=== PATIENT | female | born 1930 | race Caucasian/White ===

== ENCOUNTER 2017-03-19 11:14 | Emergency (ER) | payer MEDICARE ==
[~2017-03-19] VITALS: Ht 165.1 cm; Wt 65.8 kg
[2017-03-19 11:14] VITALS: BP 156/81
[2017-03-19] MEDS ORDERED: ONDANSETRON PF 4 MG/2 ML VIAL. IV ONE (11:45)
[2017-03-19 12:12] LABS: BASO # 0.1 x10^3/uL (0.0-0.2); BASO % 1 % (0-3); EOS # 0.4 x10^3/uL (0.0-0.7); EOS % 4 % (0-3); HEMATOCRIT 46.1 % (36.0-47.0); HEMOGLOBIN 15.3 g/dL (12.0-15.5); LYMPH # 1.2 x10^3/uL (1.0-4.8); LYMPH % 12 % (24-48); MEAN CORPUSCULAR HEMOGLOBIN 30 pg (25-35); MEAN CORPUSCULAR HGB CONC 33 g/dL (31-37); MEAN CORPUSCULAR VOLUME 90 fL (79-100); MONO # 0.8 x10^3/uL (0.0-1.1); MONO % 9 % (0-9); NEUT # 7.2 x10^3uL (1.8-7.7); NEUT % 74 % (31-73); PLATELET COUNT 211 x10^3/uL (140-400); RED BLOOD COUNT 5.15 x10^6/uL (3.50-5.40); RED CELL DISTRIBUTION WIDTH 13.9 % (11.5-14.5); WHITE BLOOD COUNT 9.8 x10^3/uL (4.0-11.0)
[2017-03-19 12:14] LABS: CALCIUM 9.3 mg/dL (8.5-10.1); CREATININE 0.9 mg/dL (0.6-1.0); GFR 59.4; POTASSIUM 3.9 mmol/L (3.5-5.1)
[2017-03-19] MEDS ORDERED: KETOROLAC 30 MG/ML VIAL. IV ONE (12:15)
[2017-03-19] MEDS ORDERED: CEFTRIAXONE SODIUM 1 GM in IV NORMAL SALINE 50ML 50 ML IV ONE (12:15)
[2017-03-19 12:22] LABS: BILIRUBIN,URINE NEG (NEG); CLARITY,URINE BLOODY; COLOR,URINE RED; GLUCOSE,URINE NEG (NEG)
[2017-03-19 12:23] LABS: BACTERIA,URINE FEW /HPF (0-FEW); RBC,URINE >40 /HPF (0-2); SQUAMOUS EPITHELIAL CELL,UR FEW /LPF; UROBILINOGEN,URINE 0.2 mg/dL (0.2 mg/dL)
--- NOTE | 2017-03-19 12:29 | RAD ---
Indication abdominal pain. Hematuria. Noncontrast imaging through the abdomen and pelvis was performed. No prior imaging of the abdomen or pelvis is available. There is some pleural-parenchymal scarring at the lung bases. An acute finding at either lung base is not seen. There is mild hepatomegaly. The spleen appears unremarkable. There is a small hiatus hernia. The gallbladder appears grossly normal. No adrenal anomalies are seen. The kidneys appear unremarkable. No renal calculi are seen. There is no hydronephrosis or significant hydroureter on either side. The pancreas appears unremarkable. Acute finding in the abdomen is not seen. In the pelvis there are multiple stones in the dependent portion of the urinary bladder compatible with bladder calculi. There is mild diffuse urinary bladder wall thickening which is nonspecific but could reflect cystitis. The uterus appears largely atrophied. There are bilateral low-density masses in the pelvis likely relate reflecting ovaries. The left measures 6.4 cm in greatest dimension. The right is slightly complicated and septated but only measures 4 cm in greatest dimension. There is a solitary calcification near the right bladder trigone. It is uncertain whether this reflects a phlebolith or a minimally or nonobstructing calculus. Scoliosis and degenerative changes in the lumbar spine are noted as well as in both hips. IMPRESSION: Multiple bladder stones. 3 to 4 mm calcification near the right UVJ. It is uncertain whether this reflects a phlebolith or a minimally or nonobstructing distal ureteral calculus. (There is no significant hydronephrosis on either side or hydroureter). Bilateral adnexal masses likely ovarian in origin. Cystadenoma or cystadenocarcinoma is not excluded Chronic musculoskeletal changes. Mild urinary bladder wall thickening. Cystitis should be considered PQRS Compliance Statement: One or more of the following individualized dose reduction techniques were utilized for this examination: 1. Automated exposure control 2. Adjustment of the mA and/or kV according to patient size 3. Use of iterative reconstruction technique
[2017-03-19] MEDS ORDERED: IV NORMAL SALINE 50ML 50 ML ONE (12:30)
[2017-03-19] MEDS ORDERED: CEFTRIAXONE SODIUM 1 GM VIAL IV ONE (12:30)
--- NOTE | 2017-03-19 12:33 | PHYS DOC ---
General Chief Complaint: UTI Stated Complaint: POSS KID STONE Time Seen by MD: 11:28 Source: patient Exam Limitations: no limitations Problems: History of Present Illness Initial Comments Pt is 86/F to ED with one day urinary sx. Pt states she has had frequency/hesitancy and suprapubic aching since yesterday , dysuria today. No fever/chills/n/v/d, gross hematuria noted in ED. No malaise/rae, no vaginal sx. Timing/Duration: 24 hours Severity: mild Modifying Factors: improves with other Associated Symptoms: other Allergies: Coded Allergies: No Known Drug Allergies (Unverified , 03/19/17) Past Medical History Medical History: hypertension Surgical History: other (hysterectomy) Social History Smoker: non-smoker Alcohol: none Drugs: none Review of Systems Constitutional: denies chills, denies fever, denies malaise Respiratory: denies cough, denies shortness of breath Cardiovascular: denies chest pain, denies palpitations Gastrointestinal: see HPI Genitourinary: see HPI Musculoskeletal: denies back pain, denies joint pain, denies joint swelling, denies neck pain Psychiatric/Neurological: denies headache, denies numbness, denies paresthesia Physical Exam General Appearance: WD/WN, no apparent distress Ear, Nose, Throat: hearing grossly normal, normal ENT inspection Neck: non-tender, supple Respiratory: normal breath sounds, no respiratory distress Cardiovascular: normal peripheral pulses, regular rate, rhythm Gastrointestinal: soft (ND, suprapubic TTP no r/g/m) Back: no CVA tenderness, no vertebral tenderness Extremities: non-tender, normal inspection Skin: normal color, warm/dry Orders, Labs, Meds PATIENT: VENICE FRITZ ACCOUNT: [id number] : 1930 LOCATION: ER AGE: 86 SEX: F EXAM STATUS: PRE ER ORD. PHYSICIAN: TAMMIE LAW DO REASON: flank pain/hematuria r/o stone PROCEDURE: CT ABDOMEN PELVIS WO CONTRAST Indication abdominal pain. Hematuria. Noncontrast imaging through the abdomen and pelvis was performed. No prior imaging of the abdomen or pelvis is available. There is some pleural-parenchymal scarring at the lung bases. An acute finding at either lung base is not seen. There is mild hepatomegaly. The spleen appears unremarkable. There is a small hiatus hernia. The gallbladder appears grossly normal. No adrenal anomalies are seen. The kidneys appear unremarkable. No renal calculi are seen. There is no hydronephrosis or significant hydroureter on either side. The pancreas appears unremarkable. Acute finding in the abdomen is not seen. In the pelvis there are multiple stones in the dependent portion of the urinary bladder compatible with bladder calculi. There is mild diffuse urinary bladder wall thickening which is nonspecific but could reflect cystitis. The uterus appears largely atrophied. There are bilateral low-density masses in the pelvis likely relate reflecting ovaries. The left measures 6.4 cm in greatest dimension. The right is slightly complicated and septated but only measures 4 cm in greatest dimension. There is a solitary calcification near the right bladder trigone. It is uncertain whether this reflects a phlebolith or a minimally or nonobstructing calculus. Scoliosis and degenerative changes in the lumbar spine are noted as well as in both hips. IMPRESSION: Multiple bladder stones. 3 to 4 mm calcification near the right UVJ. It is uncertain whether this reflects a phlebolith or a minimally or nonobstructing distal ureteral calculus. (There is no significant hydronephrosis on either side or hydroureter). Bilateral adnexal masses likely ovarian in origin. Cystadenoma or cystadenocarcinoma is not excluded Chronic musculoskeletal changes. Mild urinary bladder wall thickening. Cystitis should be considered PQRS Compliance Statement: One or more of the following individualized dose reduction techniques were utilized for this examination: 1. Automated exposure control 2. Adjustment of the mA and/or kV according to patient size 3. Use of iterative reconstruction technique DICTATED AND SIGNED BY: ISAC SYED MD DATE: 03/19/17 1216 CC: HANANE COWAN; TAMMIE LAW DO ~ Reassuring labs, UA: SE few, WBC 5-10, RBC > 40, LE trace, blood large I discussed findings at length with pt. 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 Departure Time of Disposition: 12:56 Disposition: 01 HOME, SELF-CARE Diagnosis: UTI, bilateral adnexal masses Condition: STABLE Patient Instructions: Ovarian Tumors, Urinary Tract Infection, [id number] Additional Instructions: Rest, no strenuous activity. Aggressive hydration with gatorade, water. OTC tylenol as needed. Rx: bactrim ds, pyridium, take meds with food. You will need to follow up with a procurement director for further ovarian evaluation. You may choose to follow up with: Dr Jon SLACKMAN [address] [facility] [address] [place] [address] call today to schedule next available appointment. Return to ED with new or changing symptoms. TAMMIE LAW DO Mar 19, 2017 12:33
[2017-03-19] MEDS ORDERED: SULF1TAB24 PO (12:54)
[2017-03-19] MEDS ORDERED: PHEN100T82 PO (12:54)
== END 2017-03-19 13:15 | disposition home or self-care (01) ==
LOC: ER 11:41
DX: N39.0 Urinary tract infection, site not specified (principal); N85.8 Other specified noninflammatory disorders of uterus; I10 Essential (primary) hypertension
CPT/HCPCS: 36415; 74176; 80048; 81001; 85027; 87086; 96365; 96375; 99285; J0696; J2405

== ENCOUNTER 2018-10-05 09:26 | Emergency (ER) | payer MEDICARE ==
[~2018-10-05] VITALS: Ht 165.1 cm; Wt 65.8 kg
[~2018-10-05 09:26] MED LIST: PHEN100T82 PO; SULF1TAB24 PO
[2018-10-05] MEDS ORDERED: IV NORMAL SALINE 500ML 500 ML IV ONE (09:45)
[2018-10-05] MEDS ORDERED: LIDOCAINE 1% Multi-Dose 20 ML VIAL. IJ ONE (10:00)
--- NOTE | 2018-10-05 10:19 | EKG ---
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
--- NOTE | 2018-10-05 10:22 | RAD ---
CT HEAD WO CONTRAST dated 10/05/2018 10:04 AM Indication: Pain, recent fallfall, facial trauma today, CT HEAD W/O. Comparison: No comparison is available. Technique: Contiguous axial imaging the head was performed from skull base to vertex. No contrast administered. One or more of the following individualized dose reduction techniques were utilized for this examination: 1. Automated exposure control 2. Adjustment of the mA and/or kV according to patient size 3. Use of iterative reconstruction technique Findings: Ventricles and sulci are mildly prominent for age. No midline shift or mass effect. Mild patchy low density in the deep/subcortical periventricular white matter. No hemorrhage or extra-axial collection. Posterior fossa and brainstem unremarkable. Visualized paranasal sinuses and mastoid air cells are clear. There are posterior lateral changes of the bilateral mastoid air cells. Extensive atherosclerotic calcifications of the parasellar carotid arteries and vertebrobasilar system. There is a small calcific density along the anterior calvarium likely represents osteoma. Additional probable osteoma along the lateral left temporal bone. IMPRESSION: 1. No evidence of acute intracranial hemorrhage or mass. 2. Mild chronic small vessel ischemic changes and atrophy. Electronically signed by: Juan Albright MD (10/05/2018 10:18 AM) [facility] [place]
[2018-10-05 10:24] LABS: BASO # 0.1 x10^3/uL (0.0-0.2); BASO % 1 % (0-3); EOS # 0.1 x10^3/uL (0.0-0.7); EOS % 2 % (0-3); HEMATOCRIT 43.3 % (36.0-47.0); HEMOGLOBIN 14.4 g/dL (12.0-15.5); LYMPH # 0.9 x10^3/uL (1.0-4.8); LYMPH % 14 % (24-48); MEAN CORPUSCULAR HEMOGLOBIN 30 pg (25-35); MEAN CORPUSCULAR HGB CONC 33 g/dL (31-37); MEAN CORPUSCULAR VOLUME 89 fL (79-100); MONO # 0.7 x10^3/uL (0.0-1.1); MONO % 11 % (0-9); NEUT # 4.7 x10^3uL (1.8-7.7); NEUT % 72 % (31-73); PLATELET COUNT 265 x10^3/uL (140-400); RED BLOOD COUNT 4.87 x10^6/uL (3.50-5.40); WHITE BLOOD COUNT 6.5 x10^3/uL (4.0-11.0)
--- NOTE | 2018-10-05 10:34 | PHYS DOC ---
Past History Past Medical History: Hypertension Past Surgical History: Coronary Bypass Surgery, Hysterectomy Alcohol Use: Occasionally Additional Alcohol Information: one drink per noc Drug Use: None Adult General Chief Complaint Chief Complaint: LACERATION/AVULSION HPI HPI 88-year-old female presents with lip laceration after fall. The patient got up this morning and had breakfast without difficulty. She typically goes to take awarded nap afterwards. When she was getting up from the bed she believes that she got tangled in her blanket and she fell. She thinks she remember striking her face on the nightstand but is not sure. Family states that they did see blood on the nightstand. Patient is unsure if she lost consciousness. She has a laceration to her upper lip. She denies headache. She denies fever or chills. She takes a baby aspirin daily, but no other blood thinners. Review of Systems Review of Systems Constitutional: Denies fever or chills [] Eyes: Denies change in visual acuity, redness, or eye pain [] HENT: Denies nasal congestion or sore throat [] Respiratory: Denies cough or shortness of breath [] Cardiovascular: No additional information not addressed in HPI [] GI: Denies abdominal pain, nausea, vomiting, bloody stools or diarrhea [] : Denies dysuria or hematuria [] Musculoskeletal: Denies back pain or joint pain [] Integument: lip laceration[] Neurologic: Denies headache, focal weakness or sensory changes [] Endocrine: Denies polyuria or polydipsia [] All other systems were reviewed and found to be within normal limits, except as documented in this note. Current Medications Current Medications Current Medications Medications (Trade) Dose Ordered Sig/Marcelina Start Time Stop Time Status Last Admin Dose Admin Lidocaine HCl 20 ml 1X ONCE 10/05/18 10:00 10/05/18 10:02 DC Sodium Chloride 500 ml @ 0 mls/hr 1X ONCE 10/05/18 09:45 10/05/18 09:48 DC Allergies Allergies Allergies Coded Allergies Type Severity Reaction Last Updated Verified No Known Drug Allergies 03/19/17 No Physical Exam Physical Exam Constitutional: Well developed, well nourished, no acute distress, non-toxic appearance. [] HENT: Normocephalic, bilateral external ears normal, oropharynx moist, no oral exudates, nose normal. [] Eyes: PERRLA, EOMI, conjunctiva normal, no discharge. [] Neck: Normal range of motion, no tenderness, supple, no stridor. [] Cardiovascular:Heart rate regular rhythm, no murmur [] Lungs & Thorax: Bilateral breath sounds clear to auscultation [] Abdomen: Bowel sounds normal, soft, no tenderness, no masses, no pulsatile masses. [] Skin: One centimeter laceration of the upper lip that crosses the vermilion border. The second laceration 1/2cm of the lateral upper lip which also involves the vermilion border.[] Back: No tenderness, no CVA tenderness. [] Extremities: No tenderness, no cyanosis, no clubbing, ROM intact, no edema. [] Neurologic: Alert and oriented X 3, normal motor function, normal sensory function, no focal deficits noted. [] Psychologic: Affect normal, judgement normal, mood normal. [] Current Patient Data Vital Signs Vital Signs Date Time Temp Pulse Resp B/P (MAP) Pulse Ox O2 Delivery O2 Flow Rate FiO2 10/05/18 09:26 97.7 66 18 97 Room Air EKG EKG [] Radiology/Procedures Radiology/Procedures [] Impressions: CT HEAD WO CONTRAST dated 10/05/2018 10:04 AM Indication: Pain, recent fallfall, facial trauma today, CT HEAD W/O. Comparison: No comparison is available. Technique: Contiguous axial imaging the head was performed from skull base to vertex. No contrast administered. One or more of the following individualized dose reduction techniques were utilized for this examination: 1. Automated exposure control 2. Adjustment of the mA and/or kV according to patient size 3. Use of iterative reconstruction technique Findings: Ventricles and sulci are mildly prominent for age. No midline shift or mass effect. Mild patchy low density in the deep/subcortical periventricular white matter. No hemorrhage or extra-axial collection. Posterior fossa and brainstem unremarkable. Visualized paranasal sinuses and mastoid air cells are clear. There are posterior lateral changes of the bilateral mastoid air cells. Extensive atherosclerotic calcifications of the parasellar carotid arteries and vertebrobasilar system. There is a small calcific density along the anterior calvarium likely represents osteoma. Additional probable osteoma along the lateral left temporal bone. IMPRESSION: 1. No evidence of acute intracranial hemorrhage or mass. 2. Mild chronic small vessel ischemic changes and atrophy. Electronically signed by: Juan Albright MD (10/05/2018 10:18 AM) [facility] DICTATED AND SIGNED BY: JUAN ALBRIGHT MD DATE: 10/05/18 1016 CC: JAGDISH VILLA DO; RICKEY PACK MD ~ Course & Med Decision Making Course & Med Decision Making Pertinent Labs and Imaging studies reviewed. (See chart for details) The patient's labs are unremarkable. Her urinalysis is negative for infection. Her EKG is negative for acute findings. I was able to repair her lip lacerations. See repair note below for more details. There were no complications. I will cover the patient with Augmentin for 5 days and give her first dose in the ED. She is stable for discharge at this time. [] Dragon Disclaimer Dragon Disclaimer This electronic medical record was generated, in whole or in part, using a voice recognition dictation system. Laceration Repair Lac Repair Indication: [Lip laceration after fall] Procedure: I obtained verbal consent from the patient and her family for a laceration repair the patient's 2 lacerations of the upper lip. The first is a L -shaped laceration of 2 cm. The second laceration is lateral to this and is one half centimeter also L-shaped. Both of these cross the vermilion border. The wounds were thoroughly irrigated with a saline rinse. The wounds were anesthetized with 2% lidocaine without epinephrine. A total of 2 mL was used. After anesthesia was achieved I repaired the first laceration with 4 5-0 Ethilon sutures in an interrupted fashion. The first suture alligned the jonny border. Hemostasis was achieved. Good skin approximation was achieved. There were no complications. The second laceration was repaired with with 2 5-0 Ethilon sutures in an interrupted fashion. First suture aligned the vermilion border. Hemostasis was achieved. Good skin approximation was achieved. Were no consultations. Total repaired wound length: 2 cm, one half centimeter. Other Items: None The patient tolerated the procedure well. Complications: None. Departure Departure: Referrals: RICKEY PACK MD (PCP) JAGDISH VILLA DO Oct 05, 2018 10:34
[2018-10-05 10:40] LABS: ALBUMIN 3.5 g/dL (3.4-5.0); CALCIUM 8.8 mg/dL (8.5-10.1); CREATININE 0.7 mg/dL (0.6-1.0); POTASSIUM 3.5 mmol/L (3.5-5.1); TOTAL BILIRUBIN 0.6 mg/dL (0.2-1.0)
[2018-10-05 11:39] LABS: BACTERIA,URINE FEW /HPF (0-FEW); BILIRUBIN,URINE NEG (NEG); CLARITY,URINE CLEAR; COLOR,URINE STRAW; GLUCOSE,URINE NEG (NEG); NITRITE,URINE NEG (NEG); RBC,URINE OCC /HPF (0-2); SQUAMOUS EPITHELIAL CELL,UR FEW /LPF; UROBILINOGEN,URINE 0.2 mg/dL (0.2 mg/dL); WBC,URINE 0 /HPF (0-4)
[2018-10-05] MEDS ORDERED: AMOXICILLIN/K CLAV 875/125MG TABLET. PO ONE (12:00)
[2018-10-05] MEDS ORDERED: AMOX1TAB61 PO (12:01)
[2018-10-05] MEDS ORDERED: HYDR-971 PO (12:01)
[2018-10-05 12:15] VITALS: BP 185/101
== END 2018-10-05 12:15 | disposition home or self-care (01) ==
LOC: ER 09:26
DX: S01.511A Laceration without foreign body of lip, initial encounter (principal); I10 Essential (primary) hypertension; Z95.1 Presence of aortocoronary bypass graft; W18.09XA Striking against other object with subsequent fall, initial encounter; Y93.89 Activity, other specified; Y92.89 Other specified places as the place of occurrence of the external cause; Y99.8 Other external cause status
CPT/HCPCS: 36415; 40650; 70450; 80053; 81001; 85025; 93005; 99285; J7040

== ENCOUNTER 2018-10-11 10:44 | Emergency (ER) | payer MEDICARE ==
[~2018-10-11] VITALS: Ht 165.1 cm; Wt 65.8 kg
[~2018-10-11 10:44] MED LIST changes: +AMOX1TAB61 PO; +HYDR-971 PO
[2018-10-11 10:49] VITALS: BP 180/80
--- NOTE | 2018-10-11 11:07 | PHYS DOC ---
Past History Past Medical History: CAD, Hypertension Past Surgical History: Coronary Bypass Surgery, Hysterectomy Smoking: Non-smoker Alcohol Use: Occasionally Drug Use: None Adult General Chief Complaint Chief Complaint: SUTURE/STAPLE REMOVAL HPI HPI Patient is a 88 year old female who presents for suture removal. Patient had a fall on 10/05/18 with laceration in 2 areas of upper lip. Patient denies unusual pain or fever and chills or drainage of pus of repaired area. Review of Systems Review of Systems Constitutional: Denies fever or chills [] Eyes: Denies change in visual acuity, redness, or eye pain [] HENT: Denies nasal congestion or sore throat [] Respiratory: Denies cough or shortness of breath [] Cardiovascular: No additional information not addressed in HPI [] GI: Denies abdominal pain, nausea, vomiting, bloody stools or diarrhea [] : Denies dysuria or hematuria [] Musculoskeletal: Denies back pain or joint pain [] Integument: Denies rash or skin lesions [] Neurologic: Denies headache, focal weakness or sensory changes [] Endocrine: Denies polyuria or polydipsia [] All other systems were reviewed and found to be within normal limits, except as documented in this note. Allergies Allergies Allergies Coded Allergies Type Severity Reaction Last Updated Verified No Known Drug Allergies 03/19/17 No Physical Exam Physical Exam Constitutional: Well developed, well nourished, no acute distress, non-toxic appearance. [] HENT: Normocephalic, well healed upper lip lacerations area Eyes: PERRLA, EOMI, conjunctiva normal, no discharge. [] Neck: Normal range of motion, no tenderness, supple, no stridor. [] Cardiovascular:Heart rate regular rhythm, no murmur [] Lungs & Thorax: Bilateral breath sounds clear to auscultation [] Extremities: No tenderness, no cyanosis, no clubbing, ROM intact, no edema. [] Neurologic: Alert and oriented X 3, normal motor function, normal sensory function, no focal deficits noted. [] Psychologic: Affect normal, judgement normal, mood normal. [] Current Patient Data Vital Signs Vital Signs Date Time Temp Pulse Resp B/P (MAP) Pulse Ox O2 Delivery O2 Flow Rate FiO2 10/11/18 10:49 97.6 85 16 97 Room Air EKG EKG [] Radiology/Procedures Radiology/Procedures [] Course & Med Decision Making Course & Med Decision Making Evaluation of patient in ER showed 88-year-old female patient presented to ER for suture removal that was placed 5 days ago. Patient had blood pressure of 180 /88 at arrival to ER and stated she ran out of her blood pressure medication this morning and going to get her refill of her medication today. 2 sets of suture in upper lips including set of 4 and 2 sutures was removed by APPRENTICE PATTERN MAKER without problem. Dragon Disclaimer Dragon Disclaimer This electronic medical record was generated, in whole or in part, using a voice recognition dictation system. Departure Departure: Impression: Primary Impression: Encounter for removal of sutures Additional Impression: Uncontrolled hypertension Disposition: 01 HOME, SELF-CARE (at 1110) Condition: STABLE Referrals: RICKEY PACK MD (PCP) Patient Instructions: Suture Removal Additional Instructions: Keep wound clean and dry Return to ER if not getting better Problem Qualifiers LIZZ SMITH MD Oct 11, 2018 11:07
== END 2018-10-11 11:18 | disposition home or self-care (01) ==
LOC: ER 10:44
DX: S01.511D Laceration without foreign body of lip, subsequent encounter (principal); I25.810 Atherosclerosis of coronary artery bypass graft(s) without angina pectoris; I10 Essential (primary) hypertension; X58.XXXD Exposure to other specified factors, subsequent encounter
CPT/HCPCS: 99281

== ENCOUNTER 2019-06-05 14:50 | Emergency (ER) | payer MEDICARE ==
[~2019-06-05] VITALS: Ht 160 cm; Wt 61.8 kg
[~2019-06-05 14:50] MED LIST changes: +HYDR-3165 PO; -HYDR-971 PO
[2019-06-05 15:55] VITALS: BP 158/75
[2019-06-05] MEDS ORDERED: NEOMY/BACITR/POLYMYXIN OINT PACKET. TP ONE (16:16)
--- NOTE | 2019-06-05 16:34 | RAD ---
CT CERVICAL SPINE WO CONTRAST, SHOULDER 2+V RIGHT, CT HEAD AND MAXILLOFACIAL WO Indication: Fell last night, facial trauma. Exposure: One or more of the following individualized dose reduction techniques were utilized for this examination: 1. Automated exposure control 2. Adjustment of the mA and/or kV according to patient size 3. Use of iterative reconstruction technique. Technique: Standard imaging without intravenous contrast. Head: Comparison with October 05, 2018 Intracranial arterial vascular calcification. No evidence of acute intracranial hemorrhage, mass effect, midline shift or abnormal extra-axial fluid collection. Enlargement of ventricles and sulci compatible with atrophy. Normal pressure hydrocephalus could also be considered. Low-density in the white matter bilaterally, a nonspecific finding, but which is commonly due to chronic small vessel ischemic disease in a patient of this age. Well-defined hypoattenuating lesion in the left periventricular white matter measures 9 mm, likely chronic lacunar infarct. A much tinier similar lesion is seen on the contralateral white matter. Multiple calcified scalp nodules are seen bilaterally no evidence of a depressed skull fracture. Partially visualized sinuses appear clear. Orbits are symmetric. No large scalp hematoma is identified. IMPRESSION: 1. Multiple chronic findings, stable since previous exam. 2. No evidence of acute intracranial hemorrhage. Facial bones: The sinuses appear clear. No fluid levels are identified. Minimal mucosal thickening in the inferior right maxillary sinus and in the right sphenoid sinus. Mild irregularity of the nasal bone compatible with a mildly displaced nasal bone fracture. The orbital floors appear intact. The orbits appear intact. The right temporomandibular joint is degenerative with minimal subluxation. IMPRESSION: Mildly displaced nasal bone fracture. Cervical spine Ring of C1 is intact. Cervico-occipital junction is intact. C1 and C2 are grossly symmetric. Vertebral body height is intact. No evidence of an acute fracture or aggressive bone destruction. Facet joint degenerative change without evidence of perched or locked facet joint. 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 Minimal anterior subluxation of C3 on C4 and C4-C5, likely just degenerative. No significant prevertebral soft tissue swelling or hematoma. Thyroid is enlarged and heterogeneous, likely due to goiter or multiple nodules. Lung apices are grossly clear. IMPRESSION: 1. Severe degenerative changes. 2. No definite acute fracture or traumatic subluxation. 3. Large heterogeneous thyroid gland, likely goiter or multiple nodules. Electronically signed by: Juan Dey MD (06/05/2019 4:31 PM) [id number]
--- NOTE | 2019-06-05 17:21 | PHYS DOC ---
Past History Past Medical History: Dementia, Hypertension Past Surgical History: No Surgical History Smoking: Non-smoker Alcohol Use: None Drug Use: None Adult General Chief Complaint Chief Complaint: MECHANICAL FALL HPI HPI Patient is a 88 year old female who presents with complaint of facial trauma and right shoulder pain. Patient states that she suffered a fall last night. The patient states that she accidentally fell after she reached out thinking that she was going to grab a support and realized that it was not in the position she thought she was going to grab. This caused her to fall over onto concrete, striking the front of her face. States that she did not lose consciousness and was able to get up after the fall under her own power. States that she had bruising in swelling to her face as a result. Also notes that she hurt her right shoulder which is still sore at this time. Patient treated cleaned and dressed abrasions to her nose. Has not taking medications today for symptoms. Not currently on any blood thinners but does take daily baby aspirin. Denies any doubling of vision, bitemporal headache, unilateral weakness, or difficulty with speech or swallowing. Review of Systems Review of Systems Constitutional: Denies fever or chills [] Eyes: Denies change in visual acuity, redness, or eye pain [] HENT: Pain and swelling to nose, multiple facial bruising[] Respiratory: Denies cough or shortness of breath [] Cardiovascular: Denies chest pain or edema[] GI: Denies abdominal pain, nausea, vomiting, bloody stools or diarrhea [] : Denies dysuria or hematuria [] Musculoskeletal: Right shoulder pain[] Integument: Denies rash or skin lesions [] Neurologic: Denies headache, focal weakness or sensory changes [] All other systems were reviewed and found to be within normal limits, except as documented in this note. Current Medications Current Medications Current Medications Medications (Trade) Dose Ordered Sig/Marcelina Start Time Stop Time Status Last Admin Dose Admin Neomycin/ Polymyxin/ Bacitracin (Triple Antibiotic Ointment) 1 pkt STK-MED ONCE 06/05/19 16:16 06/05/19 16:17 DC Allergies Allergies Allergies Coded Allergies Type Severity Reaction Last Updated Verified No Known Drug Allergies 03/19/17 No Physical Exam Physical Exam Constitutional: Well developed, well nourished, no acute distress, non-toxic appearance. [] HENT: Normocephalic, multiple abrasions and ecchymosis of the forehead, bilateral periorbital regions, and bridge of nose, tenderness palpation over bridge of nose, external ear exam normal bilaterally. [] Eyes: PERRLA, EOMI, periorbital ecchymosis bilaterally. [] Neck: Normal range of motion, no tenderness, supple, no stridor. [] Cardiovascular:Heart rate regular rhythm, no murmur [] Lungs & Thorax: Bilateral breath sounds clear to auscultation [] Abdomen: Bowel sounds normal, soft, no tenderness, no masses, no pulsatile masses. [] Skin: Warm, dry, no erythema, no rash. [] Back: No tenderness, no CVA tenderness. [] Extremities: Tenderness to palpation at right before meals joint of shoulder, very limited range of motion including external rotation and abduction, pulses 2+ distally. [] Neurologic: Alert and oriented X 3, normal motor function, normal sensory function, no focal deficits noted. [] Current Patient Data Vital Signs Vital Signs Date Time Temp Pulse Resp B/P (MAP) Pulse Ox O2 Delivery O2 Flow Rate FiO2 06/05/19 15:55 97.7 72 20 95 Room Air Lab Results Not performed EKG EKG Not performed[] Radiology/Procedures Radiology/[place] [address] IMAGING REPORT Signed PATIENT: VENICE FRITZ ACCOUNT: [id number] : 1930 LOCATION: ER AGE: 88 SEX: F EXAM STATUS: REG ER ORD. PHYSICIAN: PATTI KINGSTON MD REASON: fall last night, facial trauma PROCEDURE: CT HEAD AND MAXILLOFACIAL WO ADDENDUM 3 view right shoulder HISTORY: Patient fell last night. FINDINGS: There is very limited change in humeral position with internal infection or rotation. This could limit detection of a humeral head fracture but no acute fracture is identified. No acromioclavicular joint separation. There are mild degenerative changes with spurring at the AC joint. No glenohumeral joint dislocation. The humerus is high riding suggesting rotator cuff tear. IMPRESSION: 1. Limited patient mobility with internal and external rotation. 2. No evidence of acute fracture or dislocation. 3. Findings suggest rotator cuff tear. Electronically signed by: Juan Dey MD (06/05/2019 4:53 PM) [facility] DICTATED AND SIGNED BY: JUAN DEY MD DATE: 06/05/19 3158 CC: PATTI KINGSTON MD; RICKEY PACK MD ~ CT CERVICAL SPINE WO CONTRAST, SHOULDER 2+V RIGHT, CT HEAD AND MAXILLOFACIAL WO Indication: Fell last night, facial trauma. Exposure: One or more of the following individualized dose reduction techniques were utilized for this examination: 1. Automated exposure control 2. Adjustment of the mA and/or kV according to patient size 3. Use of iterative reconstruction technique. Technique: Standard imaging without intravenous contrast. Head: Comparison with October 05, 2018 Intracranial arterial vascular calcification. No evidence of acute intracranial hemorrhage, mass effect, midline shift or abnormal extra-axial fluid collection. Enlargement of ventricles and sulci compatible with atrophy. Normal pressure hydrocephalus could also be considered. Low-density in the white matter bilaterally, a nonspecific finding, but which is commonly due to chronic small vessel ischemic disease in a patient of this age. Well-defined hypoattenuating lesion in the left periventricular white matter measures 9 mm, likely chronic lacunar infarct. A much tinier similar lesion is seen on the contralateral white matter. Multiple calcified scalp nodules are seen bilaterally no evidence of a depressed skull fracture. Partially visualized sinuses appear clear. Orbits are symmetric. No large scalp hematoma is identified. IMPRESSION: 1. Multiple chronic findings, stable since previous exam. 2. No evidence of acute intracranial hemorrhage. Facial bones: The sinuses appear clear. No fluid levels are identified. Minimal mucosal thickening in the inferior right maxillary sinus and in the right sphenoid sinus. Mild irregularity of the nasal bone compatible with a mildly displaced nasal bone fracture. The orbital floors appear intact. The orbits appear intact. The right temporomandibular joint is degenerative with minimal subluxation. IMPRESSION: Mildly displaced nasal bone fracture. Cervical spine Ring of C1 is intact. Cervico-occipital junction is intact. C1 and C2 are grossly symmetric. Vertebral body height is intact. No evidence of an acute fracture or aggressive bone destruction. Facet joint degenerative change without evidence of perched or locked facet joint. 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 Minimal anterior subluxation of C3 on C4 and C4-C5, likely just degenerative. No significant prevertebral soft tissue swelling or hematoma. Thyroid is enlarged and heterogeneous, likely due to goiter or multiple nodules. Lung apices are grossly clear. IMPRESSION: 1. Severe degenerative changes. 2. No definite acute fracture or traumatic subluxation. 3. Large heterogeneous thyroid gland, likely goiter or multiple nodules. Electronically signed by: Juan Dey MD (06/05/2019 4:31 PM) [facility] DICTATED AND SIGNED BY: JUAN DEY MD DATE: 06/05/19 0831 CC: PATTI KINGSTON MD; RICKEY PACK MD ~ [] Course & Med Decision Making Course & Med Decision Making Pertinent Labs and Imaging studies reviewed. (See chart for details) CT imaging shows evidence of nasal bridge fracture. No fractures were noted on right shoulder, however given limitation in rotation, as well as patient's current exam, rotator cuff tear cannot be ruled out at this time. Patient placed in a shoulder sling for the right upper extremity. Advised to continue antibiotic ointment to abrasions of face with clean dressings. Recommended that patient follow up with her primary doctor in the next 5 days for reevaluation. Advised return to emergency department for any worsening symptoms. Patient was understanding and agreement with treatment plan.[] Dragon Disclaimer Dragon Disclaimer This electronic medical record was generated, in whole or in part, using a voice recognition dictation system. Departure Departure: Impression: Primary Impression: Nasal bone fracture Additional Impressions: Fall from standing Right shoulder injury Facial contusion Disposition: 01 HOME, SELF-CARE Condition: STABLE Referrals: RICKEY PACK MD (PCP) Patient Instructions: Facial or Scalp Contusion, Nasal Fracture, Shoulder Pain Additional Instructions: Your examination does show concern for a possible rotator cuff injury to your right shoulder. Follow-up with your primary doctor in 5 days for reevaluation. Return to the emergency department for any worsening symptoms. Problem Qualifiers Primary Impression: Nasal bone fracture Encounter type: initial encounter Fracture type: closed Qualified Codes: S02.2XXA - Fracture of nasal bones, initial encounter for closed fracture Additional Impressions: Fall from standing Encounter type: initial encounter Qualified Codes: W19.XXXA - Unspecified fall, initial encounter Right shoulder injury Encounter type: initial encounter Qualified Codes: S49.91XA - Unspecified injury of right shoulder and upper arm, initial encounter Facial contusion Encounter type: initial encounter Qualified Codes: S00.83XA - Contusion of other part of head, initial encounter PATTI KINGSTON MD Jun 05, 2019 17:21
== END 2019-06-05 17:33 | disposition home or self-care (01) ==
LOC: ER 14:50
DX: S02.2XXA Fracture of nasal bones, initial encounter for closed fracture (principal); S00.83XA Contusion of other part of head, initial encounter; S49.91XA Unspecified injury of right shoulder and upper arm, initial encounter; I10 Essential (primary) hypertension; F03.90 Unspecified dementia, unspecified severity, without behavioral disturbance, psychotic disturbance, mood disturbance, and anxiety; W18.09XA Striking against other object with subsequent fall, initial encounter; Y93.89 Activity, other specified; Y92.89 Other specified places as the place of occurrence of the external cause; Y99.8 Other external cause status
CPT/HCPCS: 70450; 70486; 72125; 73030; 99284-25

== ENCOUNTER 2019-11-25 15:12 | Emergency (ER) | payer MEDICARE ==
[~2019-11-25] VITALS: Ht 162.6 cm; Wt 63.0 kg
[2019-11-25] MEDS ORDERED: IPRATRPIUM/ALBUTEROL 0.5/2.5MG 3 ML NEBU. NEB ONE (15:45)
[2019-11-25 15:57] LABS: BASO # 0.1 x10^3/uL (0.0-0.2); BASO % 2 % (0-3); EOS # 0.1 x10^3/uL (0.0-0.7); EOS % 1 % (0-3); HEMATOCRIT 42.4 % (36.0-47.0); HEMOGLOBIN 14.2 g/dL (12.0-15.5); LYMPH % 21 % (24-48); MEAN CORPUSCULAR HEMOGLOBIN 29 pg (25-35); MEAN CORPUSCULAR HGB CONC 33 g/dL (31-37); MEAN CORPUSCULAR VOLUME 88 fL (79-100); MONO # 0.7 x10^3/uL (0.0-1.1); MONO % 14 % (0-9); NEUT # 2.9 x10^3uL (1.8-7.7); NEUT % 62 % (31-73); PLATELET COUNT 199 x10^3/uL (140-400); RED BLOOD COUNT 4.85 x10^6/uL (3.50-5.40); RED CELL DISTRIBUTION WIDTH 14.1 % (11.5-14.5); WHITE BLOOD COUNT 4.7 x10^3/uL (4.0-11.0)
--- NOTE | 2019-11-25 16:01 | PHYS DOC ---
Past History Past Medical History: CAD, Dementia, Hypertension, [place] Past Surgical History: Coronary Bypass Surgery, Hysterectomy Smoking: Non-smoker Alcohol Use: Occasionally Drug Use: None Adult General Chief Complaint Chief Complaint: COUGH HPI HPI Patient is an 89-year-old female who presents with report of cough and congestion and just not feeling well. Patient's son whom she lives with was just recently admitted for influenza A and discharged home yesterday. Patient reportedly has had no fever. Patient has had no vomiting or diarrhea. She denies any chest pain or shortness breath. History is somewhat limited as patient is poor historian.[] Review of Systems Review of Systems Constitutional: Denies fever or chills [] Respiratory: Positive cough without shortness of breath [] Cardiovascular: No additional information not addressed in HPI [] Integument: Denies rash or skin lesions [] Neurologic: Denies headache, focal weakness or sensory changes [] All other systems were reviewed and found to be within normal limits, except as documented in this note. Current Medications Current Medications Current Medications Medications (Trade) Dose Ordered Sig/Marcelina Start Time Stop Time Status Last Admin Dose Admin Albuterol/ Ipratropium (Duoneb) 3 ml 1X ONCE 11/25/19 15:45 11/25/19 15:46 DC 11/25/19 15:57 3 ML Allergies Allergies Allergies Coded Allergies Type Severity Reaction Last Updated Verified No Known Drug Allergies 03/19/17 No Physical Exam Physical Exam Constitutional: Well developed, well nourished, no acute distress, non-toxic appearance. [] HENT: Normocephalic, atraumatic, bilateral external ears normal, oropharynx moist, no oral exudates, nose normal. [] Eyes: PERRLA, EOMI, conjunctiva normal, no discharge. [] Neck: Normal range of motion, no tenderness, supple, no stridor. [] Cardiovascular: Regular rate and rhythm[] Lungs & Thorax: Fine rhonchi are noted to auscultation [] Abdomen: Bowel sounds normal, soft, no tenderness. [] Skin: Warm, dry, no erythema, no rash. [] Extremities: No tenderness, no cyanosis, no clubbing, ROM intact. [] Neurologic: Awake and alert, no focal deficits noted. [] Current Patient Data Vital Signs Vital Signs Date Time Temp Pulse Resp B/P (MAP) Pulse Ox O2 Delivery O2 Flow Rate FiO2 12/28/19 15:20 97.9 77 20 96 Room Air Lab Results Laboratory Tests Test 11/25/19 15:45 White Blood Count 4.7 x10^3/uL (4.0-11.0) Red Blood Count 4.85 x10^6/uL (3.50-5.40) Hemoglobin 14.2 g/dL (12.0-15.5) Hematocrit 42.4 % (36.0-47.0) Mean Corpuscular Volume 88 fL (79-100) Mean Corpuscular Hemoglobin 29 pg (25-35) Mean Corpuscular Hemoglobin Concent 33 g/dL (31-37) Red Cell Distribution Width 14.1 % (11.5-14.5) Platelet Count 199 x10^3/uL (140-400) Neutrophils (%) (Auto) 62 % (31-73) Lymphocytes (%) (Auto) 21 % (24-48) L Monocytes (%) (Auto) 14 % (0-9) H Eosinophils (%) (Auto) 1 % (0-3) Basophils (%) (Auto) 2 % (0-3) Neutrophils # (Auto) 2.9 x10^3uL (1.8-7.7) Lymphocytes # (Auto) 1.0 x10^3/uL (1.0-4.8) Monocytes # (Auto) 0.7 x10^3/uL (0.0-1.1) Eosinophils # (Auto) 0.1 x10^3/uL (0.0-0.7) Basophils # (Auto) 0.1 x10^3/uL (0.0-0.2) EKG EKG [] Radiology/Procedures Radiology/Procedures [] Impressions: PROCEDURE: PORTABLE CHEST 1V AP portable chest radiograph 11/25/2019 Clinical History: Shortness of breath. An AP erect portable digital radiograph of the chest was obtained. Comparison study is dated 04/26/2012. Surgical changes are seen consistent with a CABG procedure. The cardiac silhouette is mildly enlarged. The thoracic aorta is tortuous. Atherosclerotic calcification of the thoracic aorta is seen. No acute pulmonary infiltrate is seen. No pleural effusion or pneumothorax is noted. Degenerative changes are seen involving the thoracic spine. IMPRESSION: No acute abnormality is seen. Electronically signed by: Ashok Villafana MD (11/25/2019 3:59 PM) [facility] Course & Med Decision Making Course & Med Decision Making Pertinent Labs and Imaging studies reviewed. (See chart for details) [] Dragon Disclaimer Dragon Disclaimer This electronic medical record was generated, in whole or in part, using a voice recognition dictation system. Departure Departure: Impression: Primary Impression: Influenza A Disposition: HOME, SELF-CARE Condition: STABLE Referrals: HEIDI VAZQUEZ MD (PCP) Patient Instructions: Influenza, Adult Scripts Oseltamivir Phosphate (TAMIFLU) 75 Mg Capsule 1 CAP PO BID for flu, #10 CAP Prov: HIMA GALEANO Jr. DO 11/25/19 HIMA GALEANO Jr. DO Nov 25, 2019 16:01
[2019-11-25 16:06] LABS: CALCIUM 8.6 mg/dL (8.5-10.1); CREATININE 1.5 mg/dL (0.6-1.0); GFR 32.7; POTASSIUM 3.3 mmol/L (3.5-5.1)
[2019-11-25 16:08] LABS: INFLUENZA A PATIENT POSITIVE (NEGATIVE); INFLUENZA B PATIENT NEGATIVE (NEGATIVE)
[2019-11-25] MEDS ORDERED: OSELTAMIVIR 75 MG CAPSULE PO ONE (16:15)
[2019-11-25] MEDS ORDERED: OSEL75CA PO (16:16)
[2019-11-25 16:18] LABS: ALBUMIN 3.4 g/dL (3.4-5.0); ALBUMIN/GLOBULIN RATIO 0.9 (1.0-1.7); TOTAL BILIRUBIN 0.4 mg/dL (0.2-1.0); TOTAL PROTEIN 7.3 g/dL (6.4-8.2)
[2019-11-25 16:25] VITALS: BP 112/59
== END 2019-11-25 16:33 | disposition home or self-care (01) ==
LOC: ER 15:12
DX: J10.1 Influenza due to other identified influenza virus with other respiratory manifestations (principal); I25.810 Atherosclerosis of coronary artery bypass graft(s) without angina pectoris; F03.90 Unspecified dementia, unspecified severity, without behavioral disturbance, psychotic disturbance, mood disturbance, and anxiety; I10 Essential (primary) hypertension; I25.2 Old myocardial infarction
CPT/HCPCS: 36415; 71045; 80053; 83880; 84484; 85025; 87804; 94640; 99285; J7620